=== PATIENT | male | born 1970 | race Caucasian/White ===

== ENCOUNTER 2023-04-14 05:37 | Outpatient (CLI) | payer OTHER ==
[~2023-04-14] VITALS: Ht 168.9 cm; Wt 100.0 kg
[~2023-04-14 05:37] MED LIST: CPR500T PO; LISI20TA PO
[2023-04-15] MEDS ORDERED: LISI20TA26 PO (11:02)
[2023-04-15] MEDS ORDERED: PLAN450C PO (11:02)
== END 2023-04-15 11:02 | disposition home or self-care (01) ==
LOC: PREOP 05:37
PROVIDERS: ATTEND Surgery
DX: Z01.818 Encounter for other preprocedural examination (principal)

== ENCOUNTER 2023-04-27 09:18 | Day surgery (SDC) | payer BC, OTHER ==
[~2023-04-27] VITALS: Ht 168.9 cm; Wt 100.0 kg
[~2023-04-27 09:18] MED LIST changes: +LISI20TA26 PO; +PLAN450C PO
[2023-04-27] MEDS ORDERED: LACTATED RINGERS 1,000 ML 1,000 ML IV STA (09:20)
[2023-04-27 09:45] VITALS: BP 131/87
--- NOTE | 2023-04-27 09:59 | Progress Note-Pre Operative ---
Pre-Operative Progress Note Date H&P Reviewed: Apr 27, 2023 Time H&P Reviewed: 09:59 History & Physical: H&P Reviewed, Patient Examed, No changes noted Pre-Operative Diagnosis: positve cologuaMIGUE Hollins DO Apr 27, 2023 09:59
[2023-04-27 10:50] VITALS: BP 106/85
--- NOTE | 2023-04-27 10:51 | Progress Note-Post Operative ---
Post-Operative Progess Note Surgeon (s)/Acoustical Logging Engineer (s) Surgeon MIGUE COWAN DO Acoustical Logging Engineer: NA Pre-Operative Diagnosis positve cologuard Post-Operative Diagnosis rectal polyps x2, internal hemorrhoids, small posterior anal fissure Procedure & Operative Findings Date of Procedure 04/27/23 Procedure Performed/Findings colonoscopy with hot biopsy polypectomy x2 Anesthesia Type per Advertising Dispatch Clerks Supervisor Estimated Blood Loss Estimated blood loss (mL): none Specimens/Packing Specimens Removed rectal polyps x2 MIGUE COWAN DO Apr 27, 2023 10:51
[2023-04-27] MEDS ORDERED: DOCU-143 PO (10:53)
--- NOTE | 2023-04-27 10:53 | Discharge Inst-Simple/Standard ---
Discharge Inst-Standard Discharge Medications New, Converted or Re-Newed RX: Transmitted to Pharmacy Patient Instructions/Follow Up Plan of Care/Instructions/FU: 2 weeks willa Activity as Tolerated: Yes Discharge Diet: Regular Diet (high fiber) MIGUE COWAN DO Apr 27, 2023 10:53
[2023-04-27 10:55] VITALS: BP 120/69
[2023-04-27 11:30] VITALS: BP 110/76
--- NOTE | 2023-04-27 13:00 | Anesthesia-General Post-Op ---
MAC Patient Condition Mental Status/LOC: Same as Preop Cardiovascular: Satisfactory Nausea/Vomiting: Absent Respiratory: Satisfactory Pain: Controlled Complications: Absent Post Op Complications Complications None Follow Up Care/Instructions Patient Instructions None needed. Anesthesiology Discharge Order Discharge Order Patient is doing well, no complaints, stable vital signs, no apparent adverse anesthesia problems. No complications reported per nursing. SHELLEY CHACKO CRNA Apr 27, 2023 13:00
--- NOTE | 2023-04-27 16:27 | OPERATIVE REPORT ---
DATE OF SERVICE: 04/27/2023 PREOPERATIVE DIAGNOSIS: Positive Cologuard. POSTOPERATIVE DIAGNOSES: Rectal polyps x2 internal hemorrhoids plus small posterior anal fissure. PROCEDURE: Colonoscopy with hot biopsy polypectomy x2. SURGEON: Migue Tovar DO ANESTHESIA: Per SPACE CONTROLLER. ESTIMATED BLOOD LOSS: None. COMPLICATIONS: None. INDICATIONS: The patient is a 53-year-old male with positive Cologuard. He understands risks and benefits of procedure and wished to proceed. Consent was signed in chart. DESCRIPTION OF PROCEDURE: The patient was taken to endoscopy suite, placed in left lateral recumbent position. Timeout was performed. Digital rectal exam was performed. No palpable polyps, masses or ulcerations. Small posterior fissure. Scope was inserted in the rectum, advanced all the way to the cecum with minimal difficulty. Prep was adequate. Scope was slowly retracted back. No polyps, masses or ulcerations within the cecum, ascending, transverse, descending and sigmoid colon. Once in the rectum, 2 small polyps were present, which hot biopsy polypectomy was performed. Scope was retroflexed noting some internal hemorrhoids. Scope was returned to its normal position, slowly withdrawn until completely removed, noting the small posterior fissure. The patient tolerated the procedure well without complications, taken to recovery room in stable condition. RECOMMENDATIONS: I would recommend a stool softener. He will follow up in the office in 2 weeks. May need diltiazem cream if not healed by then. Would need repeat colonoscopy in 5 years due to polyps. Any issues before that, be seen at that time. Job ID: [id number] DocumentID: [id number] Dictated Date: 04/27/2023 10:52:20 Traffic Law Attorney Date: 04/27/2023 16:25:00 Dictated By: MIGUE TOVAR DO
== END 2023-04-27 11:30 | disposition home or self-care (01) ==
LOC: ENDO 09:18
PROVIDERS: ATTEND Surgery
DX: Z12.11 Encounter for screening for malignant neoplasm of colon (principal); K62.1 Rectal polyp; K64.8 Other hemorrhoids; K60.2 Anal fissure, unspecified